=== PATIENT | female | born 1950 | race Caucasian/White ===

== ENCOUNTER → 2017-06-09 | Outpatient (CLI) | payer OTHER ==
[~2017-06-09] MED LIST: ABILIFY PO; ALDACTONE PO; ALTABAX; AMLODIPINE BESY10 MG PO; ASPIRIN PO; ATIVAN PO; AVALIDE 300-251 TAB PO; BAYER ASPIRIN325 M1 PO; BYSTOLIC10 MG PO; COZAAR100 MG PO; CYMBALTA PO; DILTIAZEM ER360 MG PO; DIOVAN HCT 160-1 TAB PO; DIOVAN PO; DULOXETINE HCL60 M1; DULOXETINE HCL60 M1 PO; HYDRALAZINE HCL25 MG PO; HYDRALAZINE HCL50 MG PO; LEVOTHYROXINE150 MCG PO; LOC PO; LORTAB 7.5-5001 TAB PO; LOSARTAN POTASS25 MG PO; LOSARTAN POTASS50 MG PO; NEURONTIN300 MG PO; NORVASC PO; PHENERGAN PO; PLAQUENIL200 MG PO; PRAVASTATIN SOD20 MG PO; PROTONIX PO; PROTONIX20 MG PO; REQUIP0.5 MG PO; SYNTHROID PO; TAZTIA XT PO; TEKTURNA PO; TYL325 PO; TYLENOL325 M1 PO; WELCHOL625 MG PO; ZETIA PO; ZYRTEC PO
--- NOTE | ~2017-06-09 | BD1 ---
[facility] A Service of [facility] & [facility] RADIOLOGY TEXT RESULTS PATIENT: MARK ARNDT LOCATION: [facility] : 46 UNIT #: [id number] AGE: [address]: Stanislaw Daily MD SEX: F ORDER DR: [id number] [facility] [address] [place], [place] [address] [id number] O MR#: [id number] Acc #: [id number] NAME: MARK ARNDT : 1950 SEX: F STUDY DATE/TIME: 06/09/2017 13:33 UNIT: [facility] ROOM: STUDY DESCRIPTION: BD Dexa Bone Dens 1+ Site Attending Physician: Stanislaw Daily M.D. Ordering Physician: Stanislaw Daily M.D. Primary Care Physician: Jesus Sales M.D. MEDICAL IMAGING REPORT This report is preliminary unless electronic signature is present EXAM Bone densitometry IMPRESSION AND PLAN 67-year-old asymptomatic female for routine screening. FINDINGS The bone mineral density of the lumbar spine (L1-L4) is calculated at 1.133 g/cm2. This correlates with T-score of 0.8 and a Z-score 2.8. This classifies as normal bone mineralization. Bone mineral of the left proximal femoral neck was calculated at 0.6 g/cm2. This correlates with a T-score -1.4 and a Z-score 0.4. This is classified as osteopenia. IMPRESSION Osteopenia. Dictated by... Andrzej Brothers M.D. THIS IS AN ELECTRONICALLY VERIFIED REPORT Andrzej Brothers M.D. at 06/10/2017 10:52 AM SON/chong TD: 06/10/2017 09:40 JOB #: [id number] MEDICAL IMAGING REPORT Page 1 of 1 COPY
== END | disposition home or self-care (01) ==
LOC: CWCC 12:30
DX: Z13.820 Encounter for screening for osteoporosis (principal); D64.9 Anemia, unspecified; M35.3 Polymyalgia rheumatica; M85.80 Other specified disorders of bone density and structure, unspecified site
CPT/HCPCS: 77080

== ENCOUNTER → 2017-07-02 | Outpatient (CLI) | payer OTHER ==
--- NOTE | ~2017-07-02 | MY29 ---
[facility] A Service of [facility] RADIOLOGY TEXT RESULTS PATIENT: MARK ARNDT LOCATION: [facility] : 46 UNIT #: [id number] AGE: [address]: Jesus Sales MD SEX: F ORDER DR: [id number] [facility] [address] [place], [place] [address] [id number] O MR#: [id number] Acc #: [id number] NAME: MARK ARNDT : 1950 SEX: F STUDY DATE/TIME: 07/02/2017 14:00 UNIT: [facility] ROOM: STUDY DESCRIPTION: [facility] SCREENING W/ CAD BILAT Attending Physician: Jesus Sales M.D. Ordering Physician: Jesus Sales M.D. Primary Care Physician: Jesus Sales M.D. MEDICAL IMAGING REPORT This report is preliminary unless electronic signature is present EXAM Digital screening mammogram 07/02/2017 HISTORY 67-year-old woman positive family history, mother age 45. Previous left breast surgery. Annual screen. COMPARISON Mammograms 05/29/2010. FINDINGS Digital imaging of each breast was completed utilizing screening protocol. Biopsy marker was placed on the left breast, inner hemisphere. Review includes FDA-approved CAD device. Breast parenchyma is heterogeneously dense. Two circumscribed nodules are stable in the left breast. One contains an image-guided biopsy marker. 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 I see no interval occurring mass. There are no suspicious microcalcifications and no architectural deformity. IMPRESSION Stable benign mammogram. Annual screening recommended. Patients over the age of 40 are entered into a reminder system with target due date for the next mammogram. A result letter will also be sent to the patient. BIRADS: 2 Benign Finding Dictated by... Cristian Ncihole M.D. THIS IS AN ELECTRONICALLY VERIFIED REPORT [facility] A Service of [facility] RADIOLOGY TEXT RESULTS PATIENT: MARK ARNDT LOCATION: [facility] : 46 UNIT #: [id number] AGE: [address]: Jesus Sales MD SEX: F ORDER DR: Cristian Nichole M.D. at 07/03/2017 8:05 AM JUNIOR/miguelina TD: 07/02/2017 21:36 JOB #: [id number] MEDICAL IMAGING REPORT Page 1 of 1 COPY
== END | disposition home or self-care (01) ==
LOC: CWCC 13:35
DX: Z12.31 Encounter for screening mammogram for malignant neoplasm of breast (principal); Z80.3 Family history of malignant neoplasm of breast; Z98.890 Other specified postprocedural states
CPT/HCPCS: G0202